=== PATIENT | male | born 1955 | race Caucasian/White ===

== ENCOUNTER 2017-12-04 07:36 | Emergency (ER) | payer OTHER ==
[~2017-12-04] VITALS: Ht 177.8 cm; Wt 120.2 kg
[~2017-12-04 07:36] MED LIST: HYDR-971 PO
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
[2017-12-04] MEDS ORDERED: ONDA4TAB10 SL (09:19)
[2017-12-04 09:40] VITALS: BP 146/91
== END 2017-12-04 09:40 | disposition home or self-care (01) ==
LOC: ER 07:36
DX: S06.0X1A Concussion with loss of consciousness of 30 minutes or less, initial encounter (principal); S13.4XXA Sprain of ligaments of cervical spine, initial encounter; E03.9 Hypothyroidism, unspecified; I10 Essential (primary) hypertension; W00.0XXA Fall on same level due to ice and snow, initial encounter; Y93.89 Activity, other specified; Y99.8 Other external cause status; Y92.89 Other specified places as the place of occurrence of the external cause
CPT/HCPCS: 70450; 72125; 99284-25

== ENCOUNTER 2019-07-05 13:02 | Inpatient (IN) | payer OTHER ==
[~2019-07-05] VITALS: Ht 177.8 cm; Wt 119.7 kg
[~2019-07-05 13:02] MED LIST changes: -ASPI-612 PO; -LEVO112T4 PO; -LEVO500T59 PO; -LOSA1TAB22 PO; -METF10007 PO; -METR-34 PO; -SIMV10TA3 PO
[2019-07-05] MEDS ORDERED: ONDANSETRON PF 4 MG/2 ML VIAL. IV PRN (13:30)
[2019-07-05] MEDS ORDERED: MORPHINE SULFATE 4 MG/ML DISP.SYRIN. IV PRN (13:30)
[2019-07-05 13:54] VITALS: BP 164/94
[2019-07-05 14:07] LABS: ALBUMIN/GLOBULIN RATIO 1.1 (1.0-1.7); CALCIUM 9.2 mg/dL (8.5-10.1); CREATININE 1.2 mg/dL (0.7-1.3); GFR 61.1; POTASSIUM 3.1 mmol/L (3.5-5.1); TOTAL BILIRUBIN 0.8 mg/dL (0.2-1.0); TOTAL PROTEIN 7.6 g/dL (6.4-8.2)
[2019-07-05 14:25] LABS: BASO % 1 % (0-3); EOS # 0.3 x10^3/uL (0.0-0.7); EOS % 4 % (0-3); HEMATOCRIT 44.9 % (39.0-53.0); HEMOGLOBIN 15.7 g/dL (13.0-17.5); LYMPH % 31 % (24-48); MEAN CORPUSCULAR HEMOGLOBIN 31 pg (25-35); MEAN CORPUSCULAR HGB CONC 35 g/dL (31-37); MEAN CORPUSCULAR VOLUME 88 fL (79-100); MONO # 0.6 x10^3/uL (0.0-1.1); MONO % 9 % (0-9); NEUT # 3.4 x10^3uL (1.8-7.7); NEUT % 55 % (31-73); PLATELET COUNT 175 x10^3/uL (140-400); RED BLOOD COUNT 5.09 x10^6/uL (4.30-5.70); RED CELL DISTRIBUTION WIDTH 14.6 % (11.5-14.5); WHITE BLOOD COUNT 6.3 x10^3/uL (4.0-11.0)
[2019-07-05] MEDS: CIPROFLOXACIN 400MG PREMIX 200 ML IV SCH (14:26)
[2019-07-05] MEDS: IV NORMAL SALINE 1,000ML 1,000 ML IV SCH ×2 (15:17→23:38)
[2019-07-05] MEDS ORDERED: METF10007 PO (16:23)
[2019-07-05] MEDS ORDERED: LEVO112T4 PO (16:23)
[2019-07-05] MEDS ORDERED: ASPI-612 PO (16:23)
[2019-07-05] MEDS ORDERED: SIMV10TA3 PO (16:23)
[2019-07-05] MEDS ORDERED: LOSA1TAB22 PO (16:23)
[2019-07-05] MEDS ORDERED: POTASSIUM CHLORIDE 20 MEQ TABLET.ER. PO ONE (16:30)
--- NOTE | 2019-07-05 16:38 | NUR ---
The patient, SHAGGY ELAM, 64 y/o, M admitted by RAQUEL HICKS MD, was given written information regarding hospital policies, unit procedures and contact persons. Valuables were checked and left with patient at bedside per patient request. Patient was admitted to [address] [place] [id number] with a diagnosis of diverticulitis, receiving IV antibiotics per physician order. Patient is alert and oriented x 4, up ad shalonda, continent of bowel and bladder, skin is in tact, regular diet. IV 22g in left hand, IV antibiotics currently infusing. Patient abdomen is soft, obese,non tender with active bowel sounds in all 4 quadrants. Patient is currently resting in room on IPAD with call light and fresh fluids with in reach.
[2019-07-05 16:39] LABS: BILIRUBIN,URINE NEG (NEG); CLARITY,URINE CLEAR; COLOR,URINE YELLOW; GLUCOSE,URINE NEG (NEG)
[2019-07-05 16:40] LABS: NITRITE,URINE NEG (NEG); RBC,URINE 0 /HPF (0-2); UROBILINOGEN,URINE 0.2 mg/dL (0.2 mg/dL)
[2019-07-05 16:41] LABS: BACTERIA,URINE FEW /HPF (0-FEW); WBC,URINE OCC /HPF (0-4)
--- NOTE | 2019-07-05 16:41 | NUR ---
Electrolyte replacement protocol initiated due to Potassium level of 3.1.
[2019-07-05] MEDS: metFORMIN 500 MG TABLET PO SCH (17:00)
[2019-07-05 19:26] VITALS: BP 162/90
[2019-07-05] MEDS ORDERED: ASPIRIN ENTERIC COATED 81 MG TABLET.DR. PO SCH (21:00)
[2019-07-05] MEDS ORDERED: SIMVASTATIN 10 MG TABLET PO SCH (21:00)
[2019-07-05 22:08] LABS: GFR 75.5; POTASSIUM 3.4 mmol/L (3.5-5.1)
[2019-07-05 22:52] VITALS: BP 163/97
[2019-07-06] MEDS: CIPROFLOXACIN 400MG PREMIX 200 ML IV SCH (02:14)
[2019-07-06 02:47] VITALS: BP 132/87
[2019-07-06 05:46] LABS: BASO % 1 % (0-3); EOS # 0.2 x10^3/uL (0.0-0.7); EOS % 6 % (0-3); HEMATOCRIT 40.5 % (39.0-53.0); HEMOGLOBIN 14.1 g/dL (13.0-17.5); LYMPH # 1.4 x10^3/uL (1.0-4.8); LYMPH % 33 % (24-48); MEAN CORPUSCULAR HEMOGLOBIN 31 pg (25-35); MEAN CORPUSCULAR HGB CONC 35 g/dL (31-37); MEAN CORPUSCULAR VOLUME 89 fL (79-100); MONO # 0.5 x10^3/uL (0.0-1.1); MONO % 12 % (0-9); NEUT # 2.1 x10^3uL (1.8-7.7); NEUT % 48 % (31-73); PLATELET COUNT 136 x10^3/uL (140-400); RED BLOOD COUNT 4.57 x10^6/uL (4.30-5.70); RED CELL DISTRIBUTION WIDTH 14.6 % (11.5-14.5); WHITE BLOOD COUNT 4.3 x10^3/uL (4.0-11.0)
[2019-07-06 05:50] LABS: CALCIUM 8.5 mg/dL (8.5-10.1); GFR 75.5; POTASSIUM 3.2 mmol/L (3.5-5.1)
[2019-07-06] MEDS ORDERED: LEVOTHYROXINE 112 MCG TABLET PO SCH (06:00)
[2019-07-06 06:15] VITALS: BP 131/78
[2019-07-06 07:53] VITALS: BP 131/78
[2019-07-06] MEDS: metFORMIN 500 MG TABLET PO SCH (07:54)
[2019-07-06] MEDS ORDERED: POTASSIUM CHLORIDE 20 MEQ TABLET.ER. PO ONE (08:00)
[2019-07-06] MEDS ORDERED: hydroCHLOROthiazide 25 MG TABLET PO SCH (09:00)
[2019-07-06] MEDS ORDERED: LOSARTAN 50 MG TABLET. PO SCH (09:00)
[2019-07-06] MEDS ORDERED: ELECTROLYTE (NON-ICU) PROTOCOL MC PRN (10:30)
[2019-07-06] MEDS ORDERED: LEVO500T59 PO (10:55)
[2019-07-06] MEDS ORDERED: METR-34 PO (10:55)
--- NOTE | 2019-07-06 12:04 | NUR ---
Pt discharged home for self care. Pt given discharge, follow up, and medication instructions. IV discontinued with no complications, pressure dressing applied. Pt left unit in stable condition accompanied by spouse.
--- NOTE | 2019-07-18 09:16 | DS ---
DATE OF DISCHARGE: 07/06/2019 HOSPITAL COURSE: A 64-year-old male came in with abdominal pain and diverticulitis. The patient was started on IV antibiotic therapy and as a result of this, the patient made good progress. There was [id number] inflammation of the mid sigmoid colon and diverticula. The patient was told that he probably needs colonoscopy in a couple of months after this colitis has calmed down. He does have severe spinal stenosis at L3-L4 with severe lateral recess stenosis, bilateral L4-L5 with multiple level lumbar facet disease as well. The patient's labs were basically unremarkable. He made good progress during the rest of his hospitalization. His potassium was slightly low, given additional potassium supplement. Blood sugars were also monitored to be borderline high. The patient's urine was unremarkable. His hemoglobin and hematocrit were all normal. In any case, the patient made good progress during the rest of his hospitalization. He was discharged home. Diverticulitis, he will continue on home medications as indicated as well. Diverticulitis of the sigmoid colon as well as hypokalemia and severe spinal stenosis of the lumbar spine. He will be on a low fiber diet for 2 weeks and then follow up in the office as indicated. RAQUEL HICKS MD DR: ELADIO/russell JOB#: [id number] / [id number]
== END 2019-07-06 11:50 | disposition home or self-care (01) | DRG 392 ==
LOC: 1 SOUTH 13:02
PROVIDERS: ADMIT Family Medicine; ATTEND Family Medicine
DX: K57.32 Diverticulitis of large intestine without perforation or abscess without bleeding (principal); M54.5 Low back pain; R31.29 Other microscopic hematuria; I10 Essential (primary) hypertension; Z96.651 Presence of right artificial knee joint; M48.061 Spinal stenosis, lumbar region without neurogenic claudication; E87.6 Hypokalemia; Z85.46 Personal history of malignant neoplasm of prostate
CPT/HCPCS: 36415; 80048; 80053; 81001; 82150; 82947; 83690; 85025; 87040; 87086; J0744; J3490; J7030

== ENCOUNTER → 2019-07-05 | Outpatient (CLI) | payer OTHER ==
[~2019-07-05] MED LIST changes: +ASPI-612 PO; +HYDR-3165 PO; -HYDR-971 PO; +LEVO112T4 PO; +LEVO500T59 PO; +LOSA1TAB22 PO; +METF10007 PO; +METR-34 PO; +ONDA4TAB10 SL; +SIMV10TA3 PO
--- NOTE | 2019-07-05 10:21 | RAD ---
CT Abdomen and Pelvis without contrast History: Bilateral groin and flank pain, previous prostatectomy Technique: Noncontrast CT imaging was performed of the abdomen and pelvis. Multiplanar images are reviewed. Exposure: One or more of the following individualized dose reduction techniques were utilized for this examination: 1. Automated exposure control 2. Adjustment of the mA and/or kV according to patient size 3. Use of iterative reconstruction technique. Comparison: January 12, 2017 Findings: No urolithiasis or hydronephrosis is identified. There is no abnormality of the limited visualized lung bases. Accurate evaluation of abdominal visceral organs is limited without intravenous contrast. There is no obvious focal abnormality of the spleen, liver, or pancreas. There is diffuse hepatic steatosis. Gallbladder is present without obvious intraluminal abnormality by CT. There is no adrenal nodularity. Accurate evaluation of bowel is limited without oral contrast. There is moderate to severe inflammatory type change about the mid sigmoid colon at which there is diverticulosis, no abscess or free air is identified. Normal appendix is visualized. There is a lesser degree of diverticulosis of the remainder of the colon. There is degenerative change of the pubic symphysis, also bony deformity of the left pubic body likely due to old trauma. There is multilevel lumbar facet degenerative change, grade 1 anterior spondylolisthesis at L4-5 and to lesser degree at L3-4. There is degree of bilateral L4-5 neural foramina compromise. There is fairly severe spinal stenosis at L3-4, also severe lateral recess stenosis bilaterally at L4-5. Impression: 1. There is moderate to severe inflammatory change about the mid sigmoid colon at which there are diverticula, evidence of diverticulitis. Colon screening should be considered after resolution of acute symptoms if this has not been performed. 2. There is no urolithiasis or hydronephrosis. 3. There is diffuse hepatic steatosis. 4. There is severe spinal stenosis L3-4, also severe lateral recess stenosis bilaterally at L4-5. There is multilevel lumbar facet degenerative change, mild abnormal alignment as stated. Electronically signed by: Bruce Willis MD (07/05/2019 10:18 AM) [id number]
== END | disposition home or self-care (01) ==
LOC: CT 09:43
PROVIDERS: ATTEND Physician Assistant
DX: K57.32 Diverticulitis of large intestine without perforation or abscess without bleeding (principal); K76.0 Fatty (change of) liver, not elsewhere classified; M43.16 Spondylolisthesis, lumbar region; M48.061 Spinal stenosis, lumbar region without neurogenic claudication; M47.816 Spondylosis without myelopathy or radiculopathy, lumbar region
CPT/HCPCS: 74176